=== PATIENT | female | born 1975 | race Caucasian/White ===

== ENCOUNTER 2020-05-22 22:46 | Emergency (ER) | payer MEDICAID, SELFPAY ==
[2020-05-22 22:46] VITALS: BP 119/80; PULSE 102; RESP 16; TEMP 36.2; O2SAT 99; BMI 43.0
--- NOTE | 2020-05-22 23:00 | RAD_ITS ---
HISTORY: Left ankle injury roller skating COMPARISON: February 25, 2016 FINDINGS: # of images incl. paperwork: 3 XR Ankle Min 3 Views : An acute fracture is present through the lateral malleolus. The fracture begins at the level of the tibial plafond, and extends for at least 3.3 cm more cranially. A nondisplaced 4 mm avulsion fracture is present from the inferior tip of the medial malleolus. The ankle mortise is intact. Soft tissue swelling is diffuse about the ankle, but slightly greater laterally than medially. Calcaneal spurring.. RAD/Ankle min 3 Views IMPRESSION: Oblique fracture through the lateral malleolus extending for 3.3 cm cranial to the tibial plafond. Acute avulsion fracture, 4 mm fracture fragment, from the medial malleolus of the Left ankle at 2321 Reported and signed by: Jono Conde MD Electronically Signed: Jono Conde MD at 23:20 EST Tel , Service support ,
[2020-05-22] MEDS: Naproxen 500 MG Tablet PO (23:03)
--- NOTE | 2020-05-22 23:22 | ED.DCSUM_ITS ---
- ER Visit Summary Date of Service: 05/22/20 Chief Complaint: Left ankle pain History of Present Illness: The patient is a [address] Chahal. She reports that she fell while rollerskating tonight and twisted her left ankle awkwardly. She denies any other injuries. No blow to the head or loss of con sciousness. No neck, back, shoulder, wrist, or hip pain. She is not on anticoagulants. She complains of a sharp pain in her left ankle is 10 of 10 severity. Is worsened by walking. Is relieved by rest. She denies any paresthesias distally. Review of systems: General: No fever, chills, cold sweats. Cardiovascular: No chest pain, palpitations. Respiratory: No cough, shortness of breath, dyspnea on exertion. Gastrointestinal: No abdominal pain, nausea, vomiting, diarrhea, melena, or hematochezia. Genitourinary: No dysuria, frequency, hematuria. Skin: No rash. Neuro: No headache, numbness, weakness. Physical Examination: Vitals: Stable. Afebrile. Neck: No vertebral tenderness. Full ROM without difficulty. Cleared by NEXUS criteria. Back: No vertebral tenderness. General: A&O x 3. NAD. Cardiovascular exam: Regular rate and rhythm, no murmur, rub or gallop. Respiratory exam: Chest nontender. No crepitus. Clear to auscultation bilaterally. No wheezes or stridor. Abdominal exam: Soft, nontender, nondistended, normal bowel sounds. No pain in RUQ or LUQ specifically. No peritoneal signs. Extremity: Moderate tenderness palpation and soft tissue swelling over the lateral malleolus. Mild tenderness palpation over the medial malleolus. She has no pain over the base of the fifth metatarsal or over the proximal fibula. She is neurovascular intact distal sensation light touch less than 2-second cap refill. She is a 2+ dorsalis pedis pulse.. Test Results: X-ray shows a Nunes B with an avulsion of the tip of the medial malleolus. Emergency Department Course and Treatment: Patient was treated with naproxen as she drove here. She was placed in a posterior splint. Treatment Plan: Patient will be discharged with crutches. Strict nonweightbearing. She given a prescription for Percocet for pain. Instructed to follow-up with Dr. Hayden in 5 to 7 days for another exam. Return to the emergency department for any worsening symptoms. Disposition: To home in improved and stable condition. Impression: 1. Left fibula fracture. 2. Avulsion left medial malleolus. 3. Ortho-Glass posterior splint, fabricated. This note was generated with [employer] dictation software. It may contain incorrect words, spelling, and punctuation that were not noted in review of the chart prior to signing ED Disposition - Plan for ED Patient: Instructions: ED Ankle Fracture, Distal Fibula Prescriptions: Oxycodone HCl/Acetaminophen [Percocet 5/325] 1 tablet PO Q6H PRN PRN 5 Days #20 tablet PRN Reason: Pain Score 6-10 Referrals: Jero Hayden DPM [STAFF PHYSICIAN] - 5-7 Days
== END 2020-05-22 23:44 | disposition home or self-care (01) ==
LOC: ED 23:14
PROVIDERS: Emergency Provider Emergency Medicine; PCP Nurse Practitioner Family
DX: S82.62XA Displaced fracture of lateral malleolus of left fibula, initial encounter for closed fracture (principal); X50.1XXA Overexertion from prolonged static or awkward postures, initial encounter; Y93.51 Activity, roller skating (inline) and skateboarding; Y92.9 Unspecified place or not applicable; Y99.8 Other external cause status; Z72.0 Tobacco use
CPT/HCPCS: 29515; 73610; 99283

== ENCOUNTER → 2020-05-27 12:56 | Outpatient (CLI) | payer MEDICAID, SELFPAY ==
[2020-05-22 22:46] VITALS: BMI 43.0
--- NOTE | 2020-05-27 13:04 | VDLE_ITS ---
Reason For Study: Pain/Swelling Procedure LEFT This is a venous duplex using B-mode, color GSV is normal. flow and spectral Doppler. CFV is compressible, spontaneous, phasic, Exam performed in department. competent, and demonstrates normal A preliminary report was called and/or faxed augmentation. to [facility]. Pt to go to ED for treatment. FV is compressible, spontaneous, phasic, competent and demonstrates normal augmentation. POP V is compressible, spontaneous, phasic, competent and demonstrates normal augmentation. T/P Trunk is compressible. LT PerV is compressible. Acute deep vein thrombosis is noted in the left SoleusV and PTV mid. Thrombus is extending into the PTV from the SoleusV. Interpretation Summary Acute deep vein thrombosis is noted in the left posterior tibial vein. Acute deep vein thrombosis is noted in the left soleus vein. The remainder of the left lower extremity deep venous system is patent and compressible. Valvular competence appears intact within the proximal deep venous system on the left . The left great saphenous vein appears patent and compressible segmentally. Ordering Physician: Jero Hayden Referring Physician: Nara Chahal Performed By: Rosy Fields RVT
== END ==
PROVIDERS: PCP Nurse Practitioner Family; Referring Provider Podiatrist; Visit Provider Podiatrist
DX: I82.442 Acute embolism and thrombosis of left tibial vein (principal); I82.462 Acute embolism and thrombosis of left calf muscular vein
CPT/HCPCS: 93971

== ENCOUNTER 2020-05-27 13:41 | Emergency (ER) | payer MEDICAID, SELFPAY ==
[2020-05-27 13:42] VITALS: BP 119/81; PULSE 77; RESP 18; TEMP 36.6; O2SAT 100; BMI 41.5
[2020-05-27 13:51] VITALS: BMI 42.7
--- NOTE | 2020-05-27 14:04 | ED.DCSUM_ITS ---
History of Present Illness Chief Complaint: Lower Extremity Injury Detail of Chief Complaint: DVT Informant: Patient Narrative: Patient presents from ultrasound secondary to a DVT in her left lower extremity. Patient was seen on May 22 secondary to a left ankle fracture. Patient was splinted at that time and then switched to a cast yesterday. Patient returned to the podiatry office today because her ankle was burning when her cast of been applied. This was removed and patient was sent for DVT study. DVT study does show acute deep vein thrombosis in the left soleus vein and the PTV mid. Thrombus is extending into the PTV from the soleus. - Past Medical History (1) Closed left ankle fracture Status: Acute Past Medical History - Allergies and Home Meds Allergies/Adverse Reactions: Allergies No Known Allergies Allergy (Verified 05/27/20 13:45) Primary Care Physician: Nara Chahal NP, PHOTOGRAPHIC HAND DEVELOPER-C [Primary Care Provider] - Prior records reviewed: Yes Smoking Status: Current every day smoker Review of Systems General: Denies: Chills, Fever Eyes: Denies: Visual changes - bilaterally ENT: Denies: Bilateral ear pain Cardiovascular: Denies: Chest pain Respiratory: Denies: Dyspnea, Cough Gastrointestinal: Denies: Abdominal pain, Vomiting, Diarrhea Genitourinary: Denies: Dysuria Musculoskeletal: Reports: Extremity Pain Skin: Denies: Rash Neurological: Denies: Headache Hematologic: Denies: Easy bruising, Easy bleeding Allergy: Denies: Uticaria Physical Exam Vital Signs/Narrative: Vital Signs Temp Pulse Resp BP Pulse Ox 05/27/20 13:42 97.9 F 77 18 119/81 H 100 Inital Vital Signs reviewed: Yes General: Well nourished, Well developed Head: Normocephalic ENT: Moist mucous membranes Neck: Supple Cardiovascular: Regular rate, Regular rhythm Respiratory: No distress, CTA bilaterally Abdomen: Soft, Nontender Extremities: - - Temporary splint in place of the left lower extremity. Good cap refill in the toes. Normal sensation. No tenderness at the knee. Skin: Normal color Neurological: Alert, Oriented x3 Psychological: Normal affect Diagnostic/Tx/Re-eval - Medical Decision Making The patient requiring a cast at this time she will need to be started on blood thinners. She will be given Eliquis. We were advised to call Dr. Hayden's office so patient can be recasted. ED Disposition - Plan for ED Patient: Disposition: Home or Assisted Living Diagnosis: DVT (deep venous thrombosis) Instructions: ED Deep Vein Thrombosis (DVT) Prescriptions: Apixaban [Eliquis] 5 mg PO BID #74 tab Transmission Status: Pending to [facility]/pharmacy #[id number] Referrals: Nara Chahal NP, PHOTOGRAPHIC HAND DEVELOPER-C [Primary Care Provider] - Jero Hayden DPM [STAFF PHYSICIAN] - Keep Josafat appointment
[2020-05-27] MEDS: APIXABAN 5 MG TABLET 10 MG PO (14:35)
[2020-05-27] MEDS: Acetaminophen 500 MG Tablet 1000 MG PO (14:35)
== END 2020-05-27 14:49 | disposition home or self-care (01) ==
LOC: ED 14:18
PROVIDERS: Emergency Provider Emergency Medicine; PCP Nurse Practitioner Family
DX: I82.462 Acute embolism and thrombosis of left calf muscular vein (principal); I82.442 Acute embolism and thrombosis of left tibial vein; F17.200 Nicotine dependence, unspecified, uncomplicated
CPT/HCPCS: 93971; 99283

== ENCOUNTER → 2020-06-07 08:02 | Outpatient (CLI) | payer MEDICAID, SELFPAY ==
[2020-05-27 13:51] VITALS: BMI 42.7
--- NOTE | 2020-06-07 08:08 | CT_ITS ---
STUDY: CT LEFT ANKLE WITHOUT CONTRAST REASON FOR EXAM: Female, 44 years old patient with ankle fractures after injury while roller skating on May 22, 2020. RADIATION DOSAGE (If Supplied By Facility): CTDIvol = ( 15.35 ) mGy, DLP = ( 326.90 ) mGycm TECHNIQUE: Thin section transaxial imaging of the ankle was obtained, with sagittal and coronal reconstructed images. Individualized dose optimization techniques were used for this CT. COMPARISON: None. FINDINGS: There is a mildly comminuted fractures of the posterior malleolus of the distal tibia. There is any bleeding fracture of the distal fibula which extends the level of the mortise. There is a small chip fracture arising from the distal medial malleolus. There appears to be abnormal attenuation within the lateral talar dome is probably secondary to small OCD. This measures approximately 6.9 mm in greatest dimension. There is a moderately large posterior calcaneal enthesophyte. The tarsal bones are generally normal alignment. There appear to be small bone island in the calcaneus. The visualized metatarsal bones also have a grossly normal appearance Normal navicular-cuneiform, cuneiform tarsal bones and intercuneiform articulations. Normal tarsometatarsal articulations and visualized metatarsi. There is soft tissue swelling. A cast is present. CT/Extremity Lower without Contra IMPRESSION: 1. Acute comminuted fracture of posterior tibial malleolus. 2. Minimally displaced oblique fracture of distal fibula extending to level of mortise. 3. Multiple small bone fragments are visible distal tibiofibular articulation possibly secondary to either acute or previous avulsion injuries. 4. 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 5. Calcaneal enthesophyte. Electronically Signed: Sophia Grier MD at 13:48 EST , Service support ,
== END ==
PROVIDERS: PCP Nurse Practitioner Family; Referring Provider Podiatrist; Visit Provider Podiatrist
DX: S82.832A Other fracture of upper and lower end of left fibula, initial encounter for closed fracture (principal)
CPT/HCPCS: 73700

== ENCOUNTER 2021-09-11 17:44 | Emergency (ER) | payer MEDICAID, SELFPAY ==
[2021-09-11 17:45] VITALS: BP 151/82; PULSE 79; RESP 17; TEMP 37; O2SAT 100; BMI 39.5
--- NOTE | 2021-09-11 18:01 | EDS_ITS ---
HPI HPI - GI History of Present Illness Chief Complaint: Abd Pain Informant: patient Abdominal Pain/Flank Pain Onset: Days Context: Gradual Onset Timing: Continuous Quality: Cramping Location: - (Suprapubic. Pelvic.) Current Severity: Mild Maximum Severity: Mild Worsened by: Nothing Relieved by: Nothing Nausea/Vomiting/Emesis GI Symptom: Negative for Nausea and Vomiting Diarrhea/Melena/Hematochezia GI Symptom: Negative for Diarrhea, Melena and Hematochezia Associated Symptoms Associated Symptoms: Negative for Dysuria, Frequency, Hematuria and Urgency Narrative Narrative: 46-year-old female with prior uterine ablation prior C-sections. States that she has had vaginal discharge and groin and pelvic pain last several days. No history of prior STDs. No vaginal bleeding. No fever. She denies any dysuria. She has no segment past medical history. Prior similar symptoms: No Recent Illness/Hospitalization: No PFSH PFSH Medical History no medical history no medical history Allergy/AdvReac Type Severity Reaction Status Date / Time No Known Allergies Allergy Verified 09/11/21 17:44 Social History Smoking Status: Current every day smoker tobacco type: cigarettes ROS ROS ED ROS Narrative Pelvic pain and discharge. Review of Systems ROS Unobtainable: Denies due to encephalopathy Constitutional Constitutional ED: Denies fever(s) or subjective ENT ENT ED: Denies ear pain, rhinorrhea or sore throat Cardiovascular Cardiovascular: Denies chest pain or palpitations Respiratory/Chest Respiratory/Chest: Denies cough, dyspnea or sputum Gastrointestinal Gastrointestinal: Reports abdominal pain; Denies diarrhea, nausea or vomiting Genitourinary Genitourinary ED: Denies dysuria, hematuria or urinary frequency Musculoskeletal Musculoskeletal: Denies arthralgias or myalgias Integumentary Denies abscess or rash Neurologic Neurologic: Denies headache(s) Psychiatric Psychiatric: Denies depression Endocrine Endocrinology: Denies polyuria Hematologic/Lymphatic Hematologic/Lymphatic: Denies easy bruising Allergic/Immunologic Allergic/Immunologic ED: Denies urticaria EXAM Physical Exam Narrative Exam Narrative: Urged.46-year-old female no acute distress. Vital signs stable afebrile. HEENT exam unremarkable. Lungs are clear. Heart regular rhythm. Abdomen soft nondistended normal bowel sounds no peritoneal signs. Mild suprapubic tenderness. No rebound guarding rigidity. Right upper and right lower quadrants are unremarkable. No hernia, no mass and no obstruction. Extremities and unremarkable. Neurologically she is awake and alert. Pelvic exam done with female nurse present in the room. External exam unremarkable. Speculum exam small no significant odor. No blood. Bimanual exam there is no uterine or adnexal tenderness. No masses. No cervical motion tenderness. Benign exam. Const Vital Signs: 09/11/21 17:45 09/11/21 20:49 Temperature 98.6 F Temperature Source Temporal Pulse Rate 79 76 Respiratory Rate 17 14 Blood Pressure 151/82 H 116/73 Blood Pressure Mean 105 87 Pulse Ox 100 100 Oxygen Delivery Method Room Air Room Air Positive well nourished, well developed and obese; Negative for cachectic, contractures or unkempt General Appearance ED: well developed and NAD; Negative for unkempt, cachectic, contractures or pallor Nutritional Appearance: obese; Negative for cachectic HEENT Reports moist mucous membranes normocephalic and atraumatic; Negative for trauma or tenderness Eyes PERRL and EOMs intact bilaterally General Eye ED: Negative for pale conjunctiva or scleral icterus Neck no lymphadenopathy, supple and no JVD General: Negative for tenderness Resp normal respiratory effort and clear to auscultation bilaterally Auscultation: Negative for rales, rhonchi, wheezes or diminished lung sounds Cardio regular rate, regular rhythm, S1 normal heart sound, S2 normal heart sound and no murmurs GI non-distended and no masses; Negative for non-tender Inspection: Negative for abdominal distention Auscultation: normoactive bowel sounds; Negative for hyperactive bowel sounds or hypoactive bowel sounds Palpation: soft and tender; Negative for guarding, rigid, hepatomegaly, splenom egaly or rebound tenderness present Back/Spine no CVA tenderness General Back: Negative for CVA tenderness Cervical Spine: Negative for cervical spine tenderness Thoracic Spine / Upper Back: Negative for thoracic spinal tenderness Extremity full ROM General Extremety ED: Negative for edema or tenderness General Extremity: Negative for edema Neuro moves all extremities Sensorium / Orientation: alert, oriented to person, oriented to place and oriented to time; Negative for orientation impaired, confused, lethargic or stuporous Motor Exam: strength 5/5 throughout Psych mental status grossly normal and thought process normal Appearance: Negative for unkempt Skin no wounds General Skin Exam: Negative for jaundice or pallor Lesions: no lesions Rashes: no rashes MDM MDM MDM Narrative Medical decision making narrative: 46-year-old female with suprapubic abdominal discomfort with vaginal discharge. Pelvic exam will be done. Urinalysis, urine test and urine gonorrhea chlamydia will be obtained. Lab Data Attestation: I reviewed the patient's lab results. Lab results narrative: Urinalysis shows no signs of infection. No whites or reds. No bacteria no nitrates. Urine test is negative. Chlamydia and gonorrhea tests are COVID- negative. Labs: Laboratory Results - last 24 hr 09/11/21 09/11/21 18:17 18:17 Urine Color Yellow Urine Clarity Clear Urine pH 6.0 Ur Specific [place] 1.015 Urine Protein Negative Urine Glucose (UA) Normal Urine Ketones Negative Urine Occult Blood Negative Urine Nitrite Negative Urine Bilirubin Negative Urine Urobilinogen Normal Ur Leukocyte Esterase 100 H Urine RBC 0 SEEN Urine WBC 0-5 SEEN Ur Squamous Epith Cells 0-5 SEEN Urine Bacteria 0 SEEN Urine Mucus 0 SEEN Urine Test Negative Chlam trachomat DNA PCR Negative N.gonorrhoeae DNA (PCR) Negative Discharge Plan Triage Chief Complaint: Abd Pain ED Provider: Salomón Durand Dx/Rx/DC Orders Clinical Impression: Pelvic pain Instructions: ED Pelvic Pain, Unknown Cause Primary Care Provider: Nara Chahal NP Referrals: Hilton Grier MD [STAFF PHYSICIAN] - As soon as possible Nara Chahal NP, SALES EXECUTIVE-C [Primary Care Provider] - Activity Restrictions/Additional Instructions: You urine and your test for discharge were negative tonight. Follow-up with EXTRUDING MACHINE OPERATOR. Motrin and Tylenol for pain. Disposition Disposition: Home, Self Care
[2021-09-11 18:25] LABS: Bacteria 0 SEEN /hpf (None Seen); Mucous, Urine 0 SEEN /hpf (<or=2+); Red Blood Cells-Urine 0 SEEN /hpf (0-5)
[2021-09-11 18:30] LABS: Color, Urine Yellow (Yellow); Glucose, Dipstick Normal (Normal); Ketone-Dipstick Negative (Negative); Leukocyte Esterase-Dipstick 100 /ul (Negative); Nitrite-Dipstick Negative (Negative); Occult Blood-Urine Negative /ul (Negative); Protein-Dipstick Negative (Negative); Specific Gravity, Urine 1.015 (1.002-1.030); Urine Bilirubin Dipstick Negative (Negative); Urine Clarity Clear (Clear); Urine Urobilinogen Normal (Normal)
[2021-09-11 18:32] LABS: Internal QC Validated? YES +Cl - CLEAR BKGD; Pregnancy, Urine Negative Negative
[2021-09-11 18:35] LABS: Squamous Epithelial Cells - UA 0-5 SEEN /hpf (5-10); White Blood Cells 0-5 SEEN /hpf (0-5)
[2021-09-11 20:30] LABS: Chlamydia Trachomatis by PCR Negative (Negative); Neisserai gonorrhoeae by PCR Negative (Negative); Probe Check PASS; Sample Adequacy Control PASS; Specimen Processing Control PASS
[2021-09-11 20:49] VITALS: BP 116/73; PULSE 76; RESP 14; O2SAT 100
== END 2021-09-11 21:48 | disposition home or self-care (01) ==
PROVIDERS: Emergency Provider Emergency Medicine; PCP Nurse Practitioner Family; Visit Provider Emergency Medicine
DX: R10.2 Pelvic and perineal pain (principal); F17.210 Nicotine dependence, cigarettes, uncomplicated; E66.9 Obesity, unspecified; Z68.39 Body mass index [BMI] 39.0-39.9, adult
CPT/HCPCS: 81001; 81025; 87491; 87591; 99282

== ENCOUNTER 2023-02-22 15:37 | Emergency (ER) | payer SELFPAY ==
[2023-02-22 15:38] VITALS: BP 124/76; PULSE 102; RESP 16; TEMP 38.2; O2SAT 98; BMI 39.6
--- NOTE | 2023-02-22 16:45 | ED.VIS.DYS ---
HPI History of Present Illness Chief Complaint: Cold Sx [facility] Medical History no medical history Home Medications amoxicillin 875 mg-potassium clavulanate 125 mg tablet 1 tab PO BID 7 days #14 tabs 02/22/23 [Rx Last Taken Unknown] Allergy/AdvReac Type Severity Reaction Status Date / Time No Known Allergies Allergy Verified 02/22/23 15:38 Social History Smoking Status: Current every day smoker tobacco type: cigarettes EXAM Physical Exam Const Vital Signs: 02/22/23 15:38 02/22/23 16:46 Temperature 100.7 F H Temperature Source Oral Pulse Rate 102 H Respiratory Rate 16 Respiratory Effort Normal Respiratory Pattern Normal Blood Pressure 124/76 H Blood Pressure Mean 92 Pulse Ox 98 Oxygen Delivery Method Room Air MDM MDM MDM Narrative Medical decision making narrative: HISTORY OF PRESENT ILLNESS: 47-year-old female here with cough and cold symptoms. States her chest pain from coughing as well as fever. She further states her cough is productive of yellow sputum. She denies any shortness of breath but notes chest pain when coughing only. No chest pain at rest. No lower extremity edema. She denies any bleeding diathesis. Denies any sick contacts the patient denies recent surgery in the last 4 weeks or immobilization in the last 3 days, denies previous diagnosis of DVT or PE, hemoptysis, unilateral leg swelling or malignancy with treatment the last 6 months or palliative. No estrogen use noted. Patient denies sudden onset of pain, no tearing sensation, no migratory symptoms, no new numbness, weakness or loss of sensation. Patient denies family history or personal history of Connective tissue disorders (Marfan's Syndrome, Tiarra Danlos etc) REVIEW OF SYSTEMS: Pertinent positives: Cough, fever, chest pain Pertinent negatives: Chest pain at rest, shortness of breath, syncope no focal weakness PHYSICAL EXAM: Nursing triage notes reviewed, Vital signs reviewed Constitutional: please see mdm HENT: MMM Eyes: Pupils equal round and reactive to light, Extraocular muscles intact Neck: No stridor, no JVD, full neck ROM Lungs: Clear to auscultation, No wheezing or rales. No increased work of breathing, no conversational dyspnea, no accessory muscle use, no nasal flaring. No respiratory distress noted Heart: Regular rate and rhythm, No murmurs, No rubs and No gallops, 2+ distal pulses (radial, femoral, posterior tibial) in all extremities Abdomen: Soft, there is no tenderness, rigidity, rebound or guarding, no obvious peritoneal signs, no palpable pulsatile abdominal masses, no auscultated abdominal bruit : No CVAT Extremities: No edema Neuro: No focal neurological deficits, cranial nerves II through XII intact, 5/5 strength in all extremities. Intact sensation to light touch in all extremities, 2+ reflexes bilateral patella tendons. Normal gait. No ataxia. Skin: No rash or lesions noted MEDICAL DECISION MAKING: Chief Complaint: Cough, cold symptoms, chest pain External records reviewed: Imaging studies reviewed, no recent imaging of the chest noted Factors affecting care: none Social determinants of health: none History obtained from others: Current everyday smoker Consults: none MDM Narrative: Patient was hemodynamically stable, febrile, nontoxic-appearing. Exam without obvious auscultated consolidative process. No respiratory distress noted. I considered the following differential diagnosis: Pneumonia, COVID, flu, ACS, arrhythmia I obtained a chest x-ray to rule out signs of pneumonia, COVID flu swab, EKG rule out signs of ACS or arrhythmia. I treated the patient with Tylenol and ibuprofen. Patient only had chest pain with cough and as such I not obtain labs to monitor troponin level on her ALL IMAGES (IF OBTAINED) HAVE BEEN PERSONALLY REVIEWED AND INTERPRETED BY MYSELF. I have personally reviewed the patient's chest x-ray. Chest x-ray shows slight right lower lobe opacity concerning for pneumonia COVID flu negative EKG with normal sinus rhythm, normal axis, normal intervals, no ST or T wave changes to suggest ischemia. No evidence of WPW, Brug[place], ARVD. The senses the patient's labs images are consistent with likely bacterial pneumonia will give oral antibiotics and strict return precautions. The patient and/or family, caregivers express understanding. The patient and/or family, caregivers agrees with the plan. Shared decision making: I will have a discussion with the patient and or visitors regarding risk/benefits of further testing or admission. They will be made aware of of the risk/benefits inherent in this decision they will be given the opportunity to voice understanding. Total critical care time today provided was at least 0 minutes. This excludes separately billable procedures. Critical care time (if documented) is secondary to the patient having high probability of clinically significant/life threatening deterioration in the patient's condition which required my urgent intervention. Impression: 1. Fever 2. Cough 3. Community-acquired pneumonia Dispo: Discharge Radiography Diagnostic Testing: Clinical Impression(s) from Imaging Studies Chest X-Ray 02/22/23 17:30 IMPRESSION: No radiographic evidence of acute cardiopulmonary disease. Electronically Signed: Olivier Polanco MD at 17:47 EDT , Discharge Plan Triage Chief Complaint: Cold Sx ED Provider: Osman Naranjo Dx/Rx/DC Orders Instructions: ED Pneumonia (Adult) Prescriptions: New amoxicillin-pot clavulanate 875-125 mg tablet 1 tab PO BID 7 Days Qty: 14 0RF Stand Alone Forms: ED Work / School Excuse Primary Care Provider: Nara Chahal NP Referrals: Nara Chahal NP, SATELLITE SPECIALIST-C [Primary Care Provider] - Activity Restrictions/Additional Instructions: Thank you for trusting us with your care today! Please take Tylenol (2 pills, 650 mg), ibuprofen (2 pills, 400 mg) every 6 hours as needed for pain and fever control. Please take antibiotics as prescribed. Please complete entire course of antibiotics. Please return to the emergency department if your symptoms change or worsen. Specifically if you cannot tolerate antibiotic by mouth or if develop worsening chest pain or shortness of breath. Please follow with your primary care physician for further outpatient evaluation and management. Disposition Disposition: Home, Self Care Discharge Date/Time: 02/22/23 18:39
[2023-02-22] MEDS: Ibuprofen 200 MG Tablet 400 MG PO (17:25)
[2023-02-22] MEDS: Acetaminophen 325 MG Tablet PO (17:25)
--- NOTE | 2023-02-22 17:30 | RAD_ITS ---
EXAM: XR CHEST, 2 VIEWS CLINICAL INDICATION: SOB, cough r/o PNA TECHNIQUE: Frontal and lateral views of the chest. COMPARISON: No relevant prior studies available. FINDINGS: LUNGS AND PLEURAL SPACES: Unremarkable. No consolidation or edema. No pneumothorax. No effusion. HEART: Unremarkable. Cardiac silhouette not enlarged. MEDIASTINUM: Central airways and mediastinal contour are unremarkable. BONES/JOINTS: Unremarkable. SOFT TISSUES: Unremarkable. RAD/Chest PA and Lateral IMPRESSION: No radiographic evidence of acute cardiopulmonary disease. Electronically Signed: Olivier Polanco MD at 17:47 EDT ,
--- NOTE | 2023-02-22 18:17 | EKG12_ITS ---
Test Reason : GEN ILL Blood Pressure : / mmHG Vent. Rate : 095 BPM Atrial Rate : 095 BPM P-R Int : 184 ms QRS Dur : 082 ms QT Int : 338 ms P-R-T Axes : 041 039 024 degrees QTc Int : 424 ms Normal sinus rhythm Normal ECG Confirmed by SHANI TAVERAS, RISA ([id number]), senior editor MICHELLE PALMER ([id number]) on 02/27/2023 7:56:06 AM Referred By: Confirmed By:RISA MCLEOD MD
[2023-02-22] MEDS: Amox/Clavulanate 875 MG Tablet PO (18:28)
== END 2023-02-22 18:39 | disposition home or self-care (01) ==
PROVIDERS: Emergency Provider Emergency Medicine; PCP Nurse Practitioner Family; Visit Provider Emergency Medicine
DX: J18.9 Pneumonia, unspecified organism (principal); F17.210 Nicotine dependence, cigarettes, uncomplicated
CPT/HCPCS: 71046; 87428; 93005; 99282